=== PATIENT | female | born 1990 | race Two or more races ===

== ENCOUNTER 2020-02-26 06:13 | Inpatient (IN) ==
[2020-02-26] MEDS ORDERED: INFLUENZA VIRUS VACCINE 0.5 ML SYRINGE IM ONE (06:56)
[2020-02-26] MEDS ORDERED: OXYTOCIN/LR 20 UNIT/1,000 ML BAG IV ONE (07:03)
[2020-02-26] MEDS ORDERED: ONDANSETRON 4 MG/2 ML VIAL IV PRN (07:14)
[2020-02-26] MEDS ORDERED: BUTORPHANOL 2 MG/ML VIAL IV PRN (07:14)
[2020-02-26] MEDS ORDERED: OXYTOCIN/LR 20 UNIT/1,000 ML BAG IV SCH ×2 (07:30)
[2020-02-26] MEDS: LACTATED RINGERS 1,000 ML IV SCH ×2 (07:39→21:15)
[2020-02-26 07:42] LABS: Basophils % 0.5 % (0.0-0.8); Eosinophils # 0.1 10*3/uL (0.0-0.87); Eosinophils % 2.4 % (0.00-10.9); Hematocrit 31.8 VOL% (35.7-47.0); Hemoglobin 10.1 GM/DL (12.0-16.0); Immature Granulocytes Absolute 0.06 #; Lymphocytes # 1.7 10*3/uL (1.4-4.0); Lymphocytes % 29.8 % (21.3-54.2); Mean Corpuscular HGB Conc 31.8 GM/DL (32-36); Mean Corpuscular Volume 80.7 FL (87-102); Mean Platelet Volume 10.9 FL (9.6-12.0); Monocytes % 10.9 % (1.7-12.7); Neutrophils % 55.4 % (38.7-73.9); Platelet Count 206 T/CUMM (130-400); Red Blood Count 3.94 MC/CUMM (3.8-5.5); White Blood Count 5.8 T/CUMM (4-12)
[2020-02-26 08:03] LABS: Albumin 2.5 G/DL (3.4-5.0); Bilirubin,Total 0.4 MG/DL (0.2-1.0); Calcium 8.9 MG/DL (8.5-10.1); Osmolality,Calculated 270.7 MOS/KG (273-304); Total Protein 6.9 G/DL (6.4-8.3)
[2020-02-26] MEDS ORDERED: FAMOTIDINE 20 MG/2 ML VIAL IV ONE (14:06)
[2020-02-26] MEDS ORDERED: NALOXONE 0.4 MG/ML VIAL IV PRN (14:06)
[2020-02-26] MEDS ORDERED: PROMETHAZINE 25 MG/1 ML VIAL IM ONE (14:06)
[2020-02-26] MEDS ORDERED: LACTATED RINGERS 1,000 ML IV ONE (14:06)
[2020-02-26] MEDS ORDERED: CITRIC ACID/SODIUM CITRATE 30 ML UDCUP PO ONE (14:06)
[2020-02-26] MEDS ORDERED: diphenhydrAMINE 50 MG/1 ML VIAL IV PRN ×2 (14:06)
[2020-02-26] MEDS ORDERED: ONDANSETRON 4 MG/2 ML VIAL IV ONE (14:06)
[2020-02-26] MEDS ORDERED: hydrOXYzine HCL 25 MG/1 ML VIAL IM PRN (14:06)
[2020-02-26] MEDS ORDERED: ePHEDrine 50 MG/ML VIAL IV PRN (14:06)
[2020-02-26] MEDS ORDERED: LACTATED RINGERS 1,000 ML IV SCH (14:30)
[2020-02-26] MEDS ORDERED: miSOPROStoL 200 MCG TABLET ONE (14:48)
[2020-02-26] MEDS ORDERED: TRANEXAMIC ACID 1,000 MG/10 ML VIAL ONE (14:49)
[2020-02-26] MEDS ORDERED: CARBOPROST TROMETHAMINE 250 MCG/ML AMP IM ONE (14:49)
[2020-02-26] MEDS ORDERED: METHYLERGONOVINE 0.2 MG/1 ML AMP ONE (14:49)
[2020-02-26] MEDS ORDERED: OXYTOCIN/LR 0 UNIT/0 ML BAG IV ONE (14:49)
[2020-02-26] MEDS ORDERED: SODIUM CHLORIDE 0.9% 0 ML IV ONE (14:50)
[2020-02-26] MEDS: fentaNYL 2 MCG/ROPIV 0.2% EPID 100 ML EPIDURAL SCH ×2 (15:13→23:14)
[2020-02-26 19:45] LABS: Bacteria,Urine Occasional /HPF (Few); Bilirubin,Urine Negative (Negative); Blood, Urine Negative (Negative); Glucose,Urine (UA) Negative (Negative); Ketones,Urine 80 mg/dL (Negative); Mucus,Urine Occasional /LPF (Occasional); Nitrite,Urine Negative (Negative); Protein,Urine Negative; RBC,Urine <1 /HPF (0-4); Squamous Epithelial Cell,Urine Occasional /HPF (0-10); Urine Appearance CLEAR (Clear); Urine Color Yellow (Yellow); Urine Specific Gravity 1.012 (1.001-1.035); Urine Urobilinogen < 2.0 EU/DL (0.2-1.0); WBC,Urine 2 /HPF (0-6)
[2020-02-27] MEDS: fentaNYL 2 MCG/ROPIV 0.2% EPID 100 ML EPIDURAL SCH (05:51)
[2020-02-27] MEDS ORDERED: miSOPROStoL 200 MCG TABLET PO ONE (07:29)
[2020-02-27] MEDS ORDERED: METHYLERGONOVINE 0.2 MG/1 ML AMP IM ONE (07:31)
[2020-02-27 07:49] LABS: Cord Venous Blood HCO3 21.2 MMOL/L; Cord Venous Blood PCO2 38.8 MMHG; Cord Venous Blood PO2 34.8
[2020-02-27] MEDS ORDERED: WITCH HAZEL PADS 100/JAR TOP PRN (07:53)
[2020-02-27] MEDS ORDERED: oxyCODONE/ACETAMINOPHEN 5-325 MG TABLET PO PRN (07:53)
[2020-02-27] MEDS ORDERED: LANOLIN 50% CREAM 0.3 OZ TUBE TOP PRN (07:53)
[2020-02-27] MEDS ORDERED: BISACODYL 10 MG SUPP RECTAL PRN (07:53)
[2020-02-27] MEDS ORDERED: OXYTOCIN/LR 20 UNIT/1,000 ML BAG IV ONE (07:53)
[2020-02-27] MEDS ORDERED: ACETAMINOPHEN 325 MG TABLET PO PRN (07:53)
[2020-02-27] MEDS ORDERED: HYDROCORTISONE 2.5% RECTAL CREAM 30 GM TUBE TOP PRN (07:53)
[2020-02-27] MEDS ORDERED: MEASLES/MUMPS/RUBELLA VACCINE 0.5 ML VIAL SUBCUT ONE (07:53)
[2020-02-27] MEDS ORDERED: RHO(D) IMMUNE GLOBULIN 300 MCG SYRINGE IM ONE (07:53)
[2020-02-27] MEDS ORDERED: DIPH/TET/ACEL PERT BOOSTER VACCINE 0.5 ML VIAL IM ONE (07:53)
[2020-02-27] MEDS ORDERED: BENZOCAINE 20%/MENTHOL 0.5% SPRAY 56 GM CAN TOP PRN (07:53)
[2020-02-27] MEDS ORDERED: ONDANSETRON 4 MG/2 ML VIAL IV PRN (07:53)
[2020-02-27] MEDS: IBUPROFEN 800 MG TABLET PO PRN ×2 (10:58→19:14)
[2020-02-27] MEDS: DOCUSATE SODIUM 100 MG CAPSULE PO SCH ×3 (18:23→22:00)
[2020-02-27] MEDS: oxyCODONE/ACETAMINOPHEN 5-325 MG TABLET PO PRN (23:14)
[2020-02-28 05:56] LABS: Basophils # 0.1 10*3/uL (0.0-0.2); Basophils % 0.3 % (0.0-0.8); Eosinophils # 0.1 10*3/uL (0.0-0.87); Eosinophils % 0.8 % (0.00-10.9); Immature Granulocytes Absolute 0.15 #; Lymphocytes # 3.1 10*3/uL (1.4-4.0); Lymphocytes % 20.4 % (21.3-54.2); Mean Corpuscular HGB Conc 31.5 GM/DL (32-36); Mean Corpuscular Volume 80.3 FL (87-102); Mean Platelet Volume 11.9 FL (9.6-12.0); Monocytes % 9.9 % (1.7-12.7); NRBC # 0.02 10*3/uL; Neutrophils % 67.6 % (38.7-73.9); Platelet Count 171 T/CUMM (130-400); Red Blood Count 2.49 MC/CUMM (3.8-5.5); Red Cell Distribution Width 14.4 % (9.3-17.3); White Blood Count 15.4 T/CUMM (4-12)
[2020-02-28 06:04] LABS: Hemoglobin 6.3 GM/DL (12.0-16.0)
[2020-02-28] MEDS ORDERED: SODIUM CHLORIDE 0.9% 1,000 ML IV PRN ×2 (06:20→06:23)
[2020-02-28] MEDS: oxyCODONE/ACETAMINOPHEN 5-325 MG TABLET PO PRN ×2 (06:29→11:59)
[2020-02-28] MEDS: DOCUSATE SODIUM 100 MG CAPSULE PO SCH ×2 (08:43→21:03)
[2020-02-28] MEDS: FERROUS SULFATE 325 MG TABLET PO SCH ×3 (08:43→21:03)
[2020-02-28 14:17] LABS: Basophils % 0.3 % (0.0-0.8); Eosinophils # 0.1 10*3/uL (0.0-0.87); Hematocrit 23.8 VOL% (35.7-47.0); Hemoglobin 7.6 GM/DL (12.0-16.0); Immature Granulocytes % 1.5 %; Lymphocytes # 2.7 10*3/uL (1.4-4.0); Lymphocytes % 19.9 % (21.3-54.2); Mean Corpuscular HGB Conc 31.9 GM/DL (32-36); Mean Corpuscular Volume 83.2 FL (87-102); Mean Platelet Volume 11.1 FL (9.6-12.0); Monocytes % 8.4 % (1.7-12.7); Neutrophils % 68.9 % (38.7-73.9); Platelet Count 173 T/CUMM (130-400); Red Blood Count 2.86 MC/CUMM (3.8-5.5); Red Cell Distribution Width 15.5 % (9.3-17.3); White Blood Count 13.6 T/CUMM (4-12)
[2020-02-29] MEDS: oxyCODONE/ACETAMINOPHEN 5-325 MG TABLET PO PRN (00:16)
[2020-02-29 09:09] VITALS: BP 108/68
[2020-02-29] MEDS: FERROUS SULFATE 325 MG TABLET PO SCH (09:25)
[2020-02-29] MEDS: DOCUSATE SODIUM 100 MG CAPSULE PO SCH (09:25)
[2020-02-29] MEDS: IBUPROFEN 800 MG TABLET PO PRN (09:45)
== END 2020-02-29 12:50 | disposition home or self-care (01) | DRG 807 ==
LOC: N.LDOUT 06:13 → N.LD 06:16 → N.OB 02-27 10:55
PROVIDERS: ADMIT Obstetrics & Gynecology; ATTEND Obstetrics & Gynecology